=== PATIENT | female | born 1990 | race Caucasian/White ===

== ENCOUNTER 2016-11-10 02:26 | Emergency (ER) | payer MEDICAID, OTHER ==
[~2016-11-10] VITALS: Ht 167.6 cm; Wt 86.0 kg
[2016-11-10 02:34] VITALS: Ht 167.6 cm; Wt 86.0 kg
[2016-11-10] MEDS ORDERED: KETOROLAC 15 MG INJ IM STA (05:05)
--- NOTE | 2016-11-10 05:05 | ERD ---
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 Patient denies dysuria, difficulty in bowel or bladder, incontinence, or difficulty moving her leg. ROS All systems reviewed and are negative except as per history of present illness. Allergies Allergies: Coded Allergies: No Known Allergy (Unverified , 11/10/16) PMhx/Soc Medical and Surgical Hx: pt denies Medical Hx, pt denies Surgical Hx Hx Alcohol Use: No Hx Substance Use: No Hx Tobacco Use: No Smoking Status: Never smoker Physical Exam Vitals Vital Signs Date Time Temp Pulse Resp B/P Pulse Ox O2 Delivery O2 Flow Rate FiO2 11/10/16 02:34 98.6 74 20 140/95 98 Vitals stable, triage notes reviewed Physical Exam Const: Well-nourished well-hydrated female in obvious discomfort no acute distress Head: Eyes: Normal Conjunctiva ENT: Normal External Ears, Nose and Mouth. Neck: Resp: Cardio: Abd: Skin: Back Exam: Skin: No bruising or rash Compartments: Soft Motor: Straight leg rises positive at 40 bilaterally. Pain with abduction and abduction. Sensation: Intact to light touch throughout Bones: No midline TTP Ext: Neur: Awake and alert Psych: Normal Mood and Affect Results 24 hrs Current Medications Medications (Trade) Dose Ordered Sig/Johana Route PRN Reason Start Time Stop Time Status Last Admin Dose Admin Ketorolac Tromethamine (Toradol) 15 mg ONCE STAT IM 11/10/16 05:05 11/10/16 05:06 DC 11/10/16 05:52 Diazepam (Valium) 5 mg ONCE ONCE PO 11/10/16 05:30 11/10/16 05:31 DC 11/10/16 05:46 Procedures/MDM This 26-year-old female presents to emergency department for evaluation of back pain, pain located lumbar sacral area pain with movement, no known injury suspected overuse syndrome. I have no suspicion for cauda equina syndrome, urinary tract infection or pyelonephritis. Patient's emergency room course today includes pain control with Toradol intramuscularly and 5 mg of Valium. With improvement of pain symptoms. Plan to discharge patient home with Naprosyn 500 mg 1 tab p.o. twice daily 10 days take medication with food, Valium 5 mg no drink alcohol or driving on medication. Use as needed for myopathy. Ice to low back, walking, avoid strenuous labor or lifting. Patient instructed to remain off work 2 days. Return for worsening of symptoms or if symptoms fail to improve as anticipated. Patient is stable with no new complaints during ER course, clinically there is no current evidence to suggest any other emergent condition appearing to require further evaluation or hospitalization. I feel the patient is stable for discharge at this time. I have discussed results, examination findings, the treatment plan with the patient and family present prior to discharge. Indications for emergent reevaluation, side effects of medication were also discussed. All questions were answered. Patient verbalizes understanding and agrees with plan of care. Departure Diagnosis: Primary Impression: Back pain Back pain location: low back pain Chronicity: unspecified Back pain laterality: bilateral Sciatica presence: without sciatica Qualified Code: M54.5 - Bilateral low back pain without sciatica, unspecified chronicity Condition: Good Patient Instructions: Back Pain (Acute Or Chronic) [facility] Additional Instructions: Thank you for for coming to [facility] for your care today. Please ask your nurse or provider if you have questions about your care today and do not leave until all your questions have been answered. Please use any medications given as directed and follow-up with your doctor (or the doctor you were referred to) in the next 2-3 days. If you do not have a primary care doctor you may follow up at the [facility] (listed below). You may also use motrin and tylenol as needed for fever and/or pain unless instructed otherwise by your provider or nurse. Indications for more urgent follow-up have been discussed, but you may return to the Emergency Department at ANY time for any worrisome or worsening symptoms. If you have abdominal pain, please know that no test or exam you received is perfect and you should follow up within 8 hours for continued pain. If you had any imaging studies today, such as an X-Ray or CT Scan, these studies will be reviewed later by a radiologist. You will be called if there are important findings that were not identified today, so make sure the contact information you provided at registration is correct. If you received any narcotic pain control medicine today, such as Vicodin, Morphine or Dilaudid, your coordination and judgment may be affected for a number of hours. Please do not drive or operate heavy machinery, and you may want someone to assist you at home. If you were given a prescription for narcotic medication, be aware that it is very addictive- use sparingly and only if necessary. JOCELYN DIXON Nov 10, 2016 05:05
[2016-11-10] MEDS ORDERED: DIAZEPAM 5 MG TAB PO ONE (05:30)
[2016-11-10] MEDS ORDERED: HYDR-906 PO (06:48)
[2016-11-10] MEDS ORDERED: NAPR-260 PO (06:48)
[2016-11-10] MEDS ORDERED: DIAZ-90 PO (06:49)
== END 2016-11-10 06:55 | disposition home or self-care (01) ==
LOC: FTE 02:26
DX: M54.5 Low back pain (principal)
CPT/HCPCS: 96372; J1885; Z7502; Z7610

== ENCOUNTER 2017-07-06 21:52 | Emergency (ER) | END 2017-07-07 03:35 | disposition home or self-care (01) ==